=== PATIENT | female | born 1960 | race Caucasian/White ===

== ENCOUNTER 2020-04-19 14:46 | Emergency (ER) | payer BC, OTHER ==
[~2020-04-19] VITALS: Ht 162.6 cm; Wt 86.2 kg
[2020-04-19 15:00] VITALS: BP 123/80
[2020-04-19] MEDS ORDERED: DexAMETHasone SOD PHOS 10MG/1ML VIAL INJ IM ONE (16:30)
[2020-04-19] MEDS ORDERED: cefTRIAXone 1GM/50ML D5W 50 ML IV ONE (16:30)
[2020-04-19] MEDS ORDERED: AZITHROMYCIN 500MG/ 250ML 250 ML IV ONE (16:30)
== END 2020-04-19 17:15 | disposition home or self-care (01) ==
LOC: ER 14:46
DX: U07.1 COVID-19 (principal); J06.9 Acute upper respiratory infection, unspecified; E11.9 Type 2 diabetes mellitus without complications; I10 Essential (primary) hypertension
CPT/HCPCS: 71045; 87070; 87635; 87804; 87880

== ENCOUNTER 2020-04-26 15:15 | Emergency (ER) | payer BC ==
[~2020-04-26] VITALS: Ht 162.6 cm; Wt 86.2 kg
[2020-04-26 15:52] VITALS: BP 127/86
[2020-04-26] MEDS ORDERED: SODIUM CHLORIDE 0.9% 1,000 ML IV ONE ×2 (17:11)
[2020-04-26] MEDS ORDERED: DOXYCYCLINE 100 MG TAB/CAP PO ONE (17:15)
[2020-04-26] MEDS ORDERED: DexAMETHasone SOD PHOS 10MG/1ML VIAL INJ IV ONE (17:15)
== END 2020-04-26 17:44 | disposition home or self-care (01) ==
LOC: ER 15:15
DX: J18.9 Pneumonia, unspecified organism (principal); I10 Essential (primary) hypertension; E11.9 Type 2 diabetes mellitus without complications; Z86.19 Personal history of other infectious and parasitic diseases
CPT/HCPCS: 71045